=== PATIENT | male | born 2005 | race Hispanic/Latino ===

== ENCOUNTER → 2024-04-30 08:27 | Outpatient (CLI) | payer OTHER, SELFPAY ==
--- NOTE | 2024-04-30 08:39 | DI.RAD.S_ITS ---
PROCEDURE: XR ANKLE RT MIN 3V INDICATIONS: ANKLE INJURY TECHNIQUE: 3 views of the ankle were acquired. COMPARISON: None. FINDINGS: Bones: No fractures or dislocations. Ankle mortise is normally aligned. No suspicious bony lesions. Soft tissues: No tibiotalar joint effusion. Achilles tendon appears normal. IMPRESSION: No acute bony abnormality or significant effusion. Approved by: Tino Oliavrez M.D. on 05/01/2024 at 17:49
== END ==
LOC: RAD 08:37
PROVIDERS: Referring Provider Family Medicine; Visit Provider Family Medicine
DX: S82.90XA Unspecified fracture of unspecified lower leg, initial encounter for closed fracture (principal); X58.XXXA Exposure to other specified factors, initial encounter
CPT/HCPCS: 73610

== ENCOUNTER → 2024-12-08 15:51 | Outpatient (ROUT) | payer OTHER, SELFPAY | PROVIDERS: Visit Provider Family Medicine | DX: Z77.011 Contact with and (suspected) exposure to lead (principal) | CPT/HCPCS: 83655 ==